=== PATIENT | female | born 2000 | race Two or more races ===

== ENCOUNTER 2023-01-05 16:57 | Emergency (ER) | payer OTHER ==
[~2023-01-05] VITALS: Ht 162.6 cm; Wt 81.6 kg
[~2023-01-05 16:57] MED LIST: CEFADROXIL500 MG PO; MUPIROCIN15 GM TOP
== END 2023-01-05 17:36 | disposition home or self-care (01) ==
LOC: ER 16:57
DX: Z48.89 Encounter for other specified surgical aftercare (principal)

== ENCOUNTER 2023-01-10 14:50 | Emergency (ER) | payer OTHER ==
[~2023-01-10] VITALS: Ht 157.5 cm; Wt 77.1 kg
== END 2023-01-10 19:24 | disposition home or self-care (01) ==
LOC: ER 14:50
DX: Z48.02 Encounter for removal of sutures (principal)